=== PATIENT | female | born 1950 | race African-American/Black ===

== ENCOUNTER 2022-03-06 12:58 | Inpatient (IN) ==
[2022-03-06 13:25] LABS: ABS Eosinophils 0.2 10^3/ul (0-0.6); ABS Lymphocytes 1.7 10^3/ul (1.0-4.8); ABS Monocytes 0.4 10^3/ul (0-0.8); ABS Neutrophils 3.5 10^3/ul (1.5-7.7); Eosinophil % 3.3 %; Hematocrit 40 % (35-47); Hemoglobin 13.2 g/dL (12.0-16.0); Mean Corpuscular HGB Conc 33 g/dL (31-36); Mean Corpuscular Hemoglobin 32 pg (27-31); Mean Corpuscular Volume 97 fL (80-97); Mean Platelet Volume 8.8 fL (7.4-10.4); Nucleated Red Blood Cells % 0.2; Platelet Count 244 10^3/uL (150-450); Red Blood Count 4.15 10^6 /uL (3.70-4.87); Red Cell Distribution Width 14 % (10-15); White Blood Count 5.8 10^3/uL (3.5-10.8)
[2022-03-06 13:40] LABS: INR 1.11 (0.86-1.15)
[2022-03-06 14:23] LABS: Albumin 4.1 g/dL (3.2-5.2); Albumin/Globulin Ratio 1.4 (1-3); Calcium 9.4 mg/dL (8.6-10.3); Potassium 4.1 mmol/L (3.5-5.0); Total Bilirubin 0.9 mg/dL (0.2-1.0); Total Protein 7.1 g/dL (6.4-8.9); eGFR CKD-EPI 66.2 (>60)
[2022-03-06 15:10] LABS: High Sensitivity Troponin 1 Hr 30 pg/mL (<15)
[2022-03-06] MEDS ORDERED: Metoprolol Tartrate 5 mg VIAL 5 ml VIAL (1 mg/ml) IV ONE (17:17)
[2022-03-06] MEDS ORDERED: HYDROcodone/ACETAMIN 5/325 mg TAB PO PRN (18:24)
[2022-03-06] MEDS ORDERED: Heparin DRIP 25,000 UNITS BAG 25,000 UNITS/500 ML BAG IV SCH (18:30)
[2022-03-06] MEDS ORDERED: Heparin - STEMI 5,000 UNITS/ML 1 ml VIAL IV ONE (18:39)
[2022-03-06 18:40] LABS: Urine Appearance Cloudy; Urine Bilirubin Negative (Negative); Urine Blood Negative (Negative); Urine Color Yellow; Urine Glucose Negative (Negative); Urine Ketones Negative (Negative); Urine Nitrite Negative (Negative); Urine Protein Negative (Negative); Urine Specific Gravity 1.023 (1.002-1.030); Urine Urobilinogen Negative (Negative)
[2022-03-06 18:44] LABS: C Reactive Protein 2.29 mg/L (<8.01)
[2022-03-06 18:49] LABS: Urine Bacteria Absent (Absent); Urine Red Blood Cell Absent (Absent); Urine Squamous Epithelial Cell Present (Absent); Urine White Blood Cell 3+(>20/hpf) (Absent)
[2022-03-06] MEDS ORDERED: Heparin 5000 UNITS/ML 1 mL VIAL IV SCH (19:00)
[2022-03-06] MEDS ORDERED: fentaNYL 100 mcg/2 ml 50 MCG/ML VIAL ONE (19:02)
[2022-03-06] MEDS ORDERED: Midazolam 5 mg/5 ml VIAL 1 mg/ml 5 ml VIAL (5 mg) ONE (19:02)
[2022-03-06] MEDS ORDERED: Lidocaine 1% MPF 5 ML VIAL ONE (19:03)
[2022-03-06] MEDS ORDERED: VERAPAMIL 2.5 MG/ML 2 ML VIAL ** 5 mg/2 ml ONE (19:03)
[2022-03-06] MEDS ORDERED: Heparin 2 UNITS/ML 1000 mls 2,000 ML IV ONE (19:03)
[2022-03-06] MEDS ORDERED: Heparin 1,000 UNIT/ML 10 ml (10,000 UNITS) CATHLAB/DIALYSIS ONE (19:03)
[2022-03-06] MEDS ORDERED: nitroGLYCERIN DRIP 25,000 MCG/250 ML BTL ONE (19:04)
[2022-03-06] MEDS ORDERED: Iohexol 350 (CONTRAST) 200 ML MDV IV ONE (19:16)
[2022-03-06] MEDS ORDERED: Atropine 0.1 MG/ML 10 ml SYR (1 mg) ONE (19:33)
[2022-03-06 19:39] LABS: High Sensitivity Troponin 3 Hr 625 pg/mL (<15)
[2022-03-06] MEDS ORDERED: Acetaminophen IV 1 GM/100ML 100 ML IV PRN (21:56)
[2022-03-06 22:49] LABS: Erythrocyte Sed Rate 35 mm/Hr (0-29)
[2022-03-07 05:25] LABS: ABS Lymphocytes 1.6 10^3/ul (1.0-4.8); ABS Monocytes 0.7 10^3/ul (0-0.8); ABS Neutrophils 6.1 10^3/ul (1.5-7.7); Eosinophil % 0.6 %; Hematocrit 36 % (35-47); Hemoglobin 11.8 g/dL (12.0-16.0); Lymphocyte % 18.7 %; Mean Corpuscular HGB Conc 33 g/dL (31-36); Mean Corpuscular Hemoglobin 32 pg (27-31); Mean Corpuscular Volume 97 fL (80-97); Mean Platelet Volume 8.9 fL (7.4-10.4); Nucleated Red Blood Cells % 0.2; Platelet Count 231 10^3/uL (150-450); Red Blood Count 3.68 10^6 /uL (3.70-4.87); Red Cell Distribution Width 14 % (10-15); White Blood Count 8.3 10^3/uL (3.5-10.8)
[2022-03-07 05:45] LABS: Calcium 8.9 mg/dL (8.6-10.3); Potassium 3.6 mmol/L (3.5-5.0)
[2022-03-07] MEDS ORDERED: Potassium Chlor 20 meq TAB.ER PO ONE (06:05)
[2022-03-07 08:02] LABS: Magnesium 1.8 mg/dL (1.9-2.7)
[2022-03-07] MEDS: Vitamin THERAPEUTIC TAB PO SCH (09:06)
[2022-03-07] MEDS: Aspirin EC 81 mg TAB.EC (enteric coated) PO SCH (09:06)
[2022-03-07 18:15] LABS: HDL Cholesterol 36.7 mg/dL
[2022-03-08 06:07] LABS: ABS Eosinophils 0.1 10^3/ul (0-0.6); ABS Lymphocytes 2.1 10^3/ul (1.0-4.8); ABS Monocytes 0.6 10^3/ul (0-0.8); ABS Neutrophils 3.9 10^3/ul (1.5-7.7); Eosinophil % 2.2 %; Hematocrit 37 % (35-47); Hemoglobin 12.2 g/dL (12.0-16.0); Lymphocyte % 30.7 %; Mean Corpuscular HGB Conc 33 g/dL (31-36); Mean Corpuscular Hemoglobin 32 pg (27-31); Mean Corpuscular Volume 97 fL (80-97); Mean Platelet Volume 9.1 fL (7.4-10.4); Nucleated Red Blood Cells % 0.1; Platelet Count 226 10^3/uL (150-450); Red Blood Count 3.82 10^6 /uL (3.70-4.87); Red Cell Distribution Width 14 % (10-15); White Blood Count 6.7 10^3/uL (3.5-10.8)
[2022-03-08 06:32] LABS: Albumin 3.7 g/dL (3.2-5.2); Albumin/Globulin Ratio 1.3 (1-3); Calcium 9.2 mg/dL (8.6-10.3); Globulin 2.8 g/dL (2-4); Potassium 3.8 mmol/L (3.5-5.0); Total Protein 6.5 g/dL (6.4-8.9); eGFR CKD-EPI 71.8 (>60)
[2022-03-08] MEDS: Aspirin EC 81 mg TAB.EC (enteric coated) PO SCH (08:44)
[2022-03-08] MEDS: Vitamin THERAPEUTIC TAB PO SCH (08:44)
[2022-03-08 12:09] VITALS: BP 137/85
== END 2022-03-08 12:10 | disposition home or self-care (01) | DRG 247 ==
LOC: ED 12:58 → EDHOLD 19:11 → SUATTDRO 19:11 → EDHOLD 19:31 → ICU 20:45 → MEDTELE 03-07 19:51
PROVIDERS: ADMIT Hospitalist; ATTEND Student in an Organized Health Care Education/Training Program